=== PATIENT | male | born 1990 | race Caucasian/White ===

== ENCOUNTER 2016-06-28 20:50 | Emergency (ER) | payer BC ==
--- NOTE | ~2016-06-28 | ER ---
PATIENT'S NAME: [facility] AGE: 26 Y [address] ROOM: [place] [address] LOCATION: [facility] ADMIT DATE: 06/28/2016 ER/Outpatient Report DISCHARGE DATE: 06/28/2016 FAMILY PHYSICIAN: PHYSICIAN, NO ATTENDING PHYSICIAN: Mukesh Carson Admission date and time are documented on the medical record. I saw the patient at 2105 hours. CHIEF COMPLAINT: Laceration, palmar surface, distal phalanx, left index finger. HISTORY OF PRESENT ILLNESS: This patient is a 26-year-old male who cut the finger pad or palmar surface, distal phalanx, left index finger with a chisel accident. This was an accidental laceration. Laceration was about 2 cm. No motor, neuro changes, bleeding controlled, no other injuries. HOME MEDICATIONS: None. ALLERGIES: NONE. SOCIAL HISTORY: Nonsmoker. Occasional intake of alcohol. SIGNIFICANT PAST MEDICAL HISTORY: Negative. OPERATIONS: None. REVIEW OF SYSTEMS: All systems reviewed by me are negative with the exception of those discussed in the history of present illness. PHYSICAL EXAMINATION: VITAL SIGNS: Temperature 99, tympanic, pulse 66, respirations 16, blood pressure 160/94, and O2 sat on room air is 99%. EXTREMITIES: On examination, the patient has a vertical 2-cm laceration, palmar surface, distal phalanx, left index finger. PROCEDURE NOTE: Wound was cleansed with Betadine and normal saline. A 1% Xylocaine was used PATIENT'S NAME: [facility] AGE: 26 Y [address] ROOM: [place] [address] LOCATION: [facility] ADMIT DATE: 06/28/2016 ER/Outpatient Report DISCHARGE DATE: 06/28/2016 FAMILY PHYSICIAN: PHYSICIAN, NO ATTENDING PHYSICIAN: Mukesh Carson for local infiltration of anesthesia. Wound was closed in simple fashion with three 4-0 Ethilon sutures. The patient tolerated the procedure well. Wound was cleansed and dressed. IMPRESSION: A 2-cm laceration, distal left index finger, with simple closure. PLAN: The patient dismissed home. Observation. Activity as tolerated. Keep wound clean. Watch for infection. Cleanse and dress daily. Follow up with personal physician in 10 days for suture removal or sooner if needed. Discussion ensued with the patient concerning my findings and recommendations, he understands. MD MATIAS GALINDO/modl /[id number] d: 06/29/166 t: 06/29/16 1813, OUTPATIENT REPORT
== END 2016-06-28 21:50 | disposition disaster alternative care site (69) ==
LOC: GACC 20:50
PROC: 0HQGXZZ Repair Left Hand Skin, External Approach (ICD-10-PCS; principal; 2016-06-28)
DX: S61.211A Laceration without foreign body of left index finger without damage to nail, initial encounter (principal); Z23 Encounter for immunization; W27.0XXA Contact with workbench tool, initial encounter